=== PATIENT | female | born 1965 | race Caucasian/White ===

== ENCOUNTER 2017-02-17 05:16 | Inpatient (IN) | payer BC ==
--- NOTE | 2017-01-19 09:15 | History and Physical ---
History & Physical Date & Time of Service: January 19, 2017 at 09:11 Chief Complaint: Left Knee Osteoarthritis Primary Care Physician: left knee pain History of Present Illness Source: patient Ms Sanders is a 51 year old female who is here for a follow up of left knee pain. She presents with pain, decreased rom and stiffness on the left side. She states that the symptoms have been chronic non-traumatic. Patient is here today for follow up of her left knee, 4 month f/u after Synvisc One injection. She is requesting a cortisone injection at today's office visit and to discuss surgical options for her left knee. The symptoms occur constantly with intermittent worsening. The problem is worse. Currently the patient states that the symptoms are moderate-severe. The pain is described as aching, discomforting and throbbing. The symptoms occur continuously. The symptoms are aggravated by ascending stairs, daily activities, descending stairs, first steps while awake, kneeling, repetitive activities, sleeping in any position, squatting, walking and work activities. Deannie states that the symptoms are relieved by no specific activity. In addition to left knee pain the patient is also experiencing decreased mobility, difficulty bending, difficulty going to sleep, limping, nighttime awakening, pain and tenderness. Pertinent negatives include chills and fever. The patient has had a previous x-ray. Updated x-rays obtained today in our office. Prior NSAIDs include Aleve. Prior pain medications include Tylenol Arthritis. She has been treated with a corticosteroid injection on the left side. Patient has been treated w/ visco supplementation, previous Synvisc One, pt reports that she had an adverse reaction w/ her last injection, she stated that she had increased pain, decreased ROM and swelling. Past Medical/Surgical History Migraines Social History denies history of smoking or tobacco use. Review of Systems Constitutional: No chills, No fatigue, No fever, No problem reported, No sweats , No weakness, No weight loss Eyes: No diplopia, No discharge, No eye pain, No problem reported, No redness, No worsening of vision ENT: No dental problems, No hearing loss, No nasal symptoms, No problem reported, No sore throat, No tinnitus, No trouble swallowing, No unusual epistaxis Respiratory: No cough, No dyspnea at rest, No dyspnea on exertion, No hemoptysis, No problem reported, No shortness of breath, No sputum, No wheezing Cardiovascular: No PND, No chest pain, No claudication, No edema, No orthopnea , No palpitations, No problem reported Abdomen: No GI bleeding, No constipation, No diarrhea, No nausea, No pain, No problem reported, No vomiting Physical Exam General Appearance: WD/WN, no apparent distress Head: normocephalic, atraumatic Eyes: normal inspection, PERRL, EOMI ENT: normal ENT inspection Neck: supple, no adenopathy Respiratory/Chest: chest non-tender, lungs clear, normal breath sounds Cardiovascular: regular rate, rhythm, no edema Abdomen/GI: normal bowel sounds, non tender, soft Knee ROM L * Active ROM - Flexion: 125 degrees, Extension: 5 degrees, Factors: normal, Description: active pain free range of motion. Passive ROM - Factors: normal, Description: passive pain free range of motion. Knee ROM R * Active ROM - Factors: normal, Description: active pain free range of motion. Passive ROM - Factors: normal, Description: passive pain free range of motion. Knee * Gait: Antalgic. Alignment - Left: neutral. Ecchymosis - Left: negative. Effusion - Left: mild. Swelling - Left: mild. Flexibility - Left: normal. Maximum tenderness - Left: Medial Joint Line. Patella exam - Crepitation - Left : negative. Patella position - Left: neutral. Tilt - Left: equal. [facility]'s - medial - Left: Positive. Knee Comments The patient has no calf tenderness. Knee Normal Inspection - Atrophy - Left: Absent. Skin - Left: Normal. Patella exam - Apprehension - Left: Negative. Q-angle - Left: Normal. Kim's - Left: Negative. Augustine's - lateral - Left: Negative. Posterior drawer - Left: Negative. Anterior drawer - Left: Negative. Valgus stress - Left: Negative. Varus stress - Left: Negative. Extensor lag - Left: Normal. Diagnostics Diagnostic Radiology Xrays reviewed of the left knee showing findings consistent with degenerative joint disease including joint space narrowing, subchondral sclerosis and peripheral osteophyte formation. no acute bony pathology, overall varus alignment. Impression: degenerative joint disease of the left knee with no acute bony pathology noted. Impression Assessment and Plan Left Knee DJD -Further care discussed with patient and at this point in time has failed conservative measures and would like to proceed with a left total knee replacement. Plan on discharge will be home with outpatient physical therapy. DVT prophalaxis with TEDs, SCDs and will also place on aspirin 81 mg p.o. b.i.d. for a month postop. Patient will have follow up appointment in our office two weeks post op for staple/suture removal and re-evaluation. Patient otherwise has no other questions or concerns.
[2017-01-19 11:56] VITALS: BMI 26.0
--- NOTE | 2017-01-19 12:32 | PAT Medication Instructions ---
Service Date January 19, 2017. Current Home Medication List Hydrocodon/Acetaminophen 5MG/300MG (Vicodin (5MG/300MG)), 1 TAB PO HS PRN for Pain Lifitegrast (Xiidra), 1 DOSE OPB UD Topiramate (Topamax), 100 MG PO BID Trazodone Hcl (Trazodone), 100 MG PO HS Medication Instructions For Your Scheduled Surgery - Take the following medications the morning of surgery with a sip of water: Topiramate (Topamax), 100 MG PO BID Hydrocodon/Acetaminophen 5MG/300MG (Vicodin (5MG/300MG)), 1 TAB PO HS PRN for Pain (okay to take up to 4 hours prior to surgery if needed) Lifitegrast (Xiidra), 1 DOSE OPB UD - Take the following medications as scheduled the night before surgery: Trazodone Hcl (Trazodone), 100 MG PO HS Topiramate (Topamax), 100 MG PO BID Hydrocodon/Acetaminophen 5MG/300MG (Vicodin (5MG/300MG)), 1 TAB PO HS PRN for Pain (if needed) Lifitegrast (Xiidra), 1 DOSE OPB UD If you have any questions please call us at [phone] (Tammy Lee PA-C) or [phone] or [phone]
--- NOTE | 2017-01-19 13:35 | DIAGNOSTIC IMAGING REPORT ---
CHEST PREADMISSION(PA/LAT) CLINICAL HISTORY: Preoperative chest COMPARISON STUDY: No previous studies for comparison. FINDINGS: The cardiac and mediastinal contours are normal. There is no evidence of focal pulmonary consolidation. There is no evidence of failure. No pleural effusions are visualized.[ IMPRESSION: No active disease in the chest. Electronically signed by: Aydin Story M.D. 01/19/2017 1:34 PM Dictated Date/Time: 01/19/2017 1:32 PM
[2017-01-19 14:01] LABS: BASO % 0.3 %; BASO ABS # 0.02 K/uL (0-0.2); COMPLETE YES; EOS % 3.6 %; HEMATOCRIT 43.6 % (37-47); IG% 0.2 %; LYMPH % 32.3 %; LYMPH ABS # 1.96 K/uL (1.2-3.4); MEAN CELL VOLUME 92.4 fL (80-100); MEAN CORPUSCULAR HEMOGLOBIN 30.1 pg (25-34); MEAN CORPUSCULAR HGB CONC 32.6 g/dl (32-36); MEAN PLATELET VOLUME 9.7 fL (7.4-10.4); MONO % 8.6 %; PLATELET COUNT 240 K/uL (130-400); RED BLOOD COUNT 4.72 M/uL (4.2-5.4); WHITE BLOOD COUNT 6.06 K/uL (4.8-10.8)
[2017-01-19 14:05] LABS: CALCIUM 8.8 mg/dl (8.5-10.1); CREATININE 0.86 mg/dl (0.60-1.20); POTASSIUM 4.3 mmol/L (3.5-5.1)
[2017-01-19 14:07] LABS: URINE APPEARANCE TURBID (CLEAR); URINE BILIRUBIN NEG (NEG); URINE COLOR YELLOW; URINE EPITHELIAL CELL AUTO 0-5 /lpf (0-5); URINE NITRITE NEG (NEG); URINE SPECIFIC GRAVITY 1.017 (1.000-1.030); UROBILINOGEN NEG (NEG)
[2017-01-19 14:09] LABS: MANUAL MICROSCOPIC REQUIRED? NO; REVIEW REQ? NO
[2017-01-19 14:11] LABS: PARTIAL THROMBOPLASTIN RATIO 1.1; PROTHROMBIN TIME (PATIENT) 10.4 SECONDS (9.0-12.0)
[2017-01-19 14:30] LABS: ESTIMATED AVERAGE GLUCOSE 120 mg/dl; HA1C FLAG Normal (Normal)
[2017-02-17] VITALS (7 sets, daily range): BP systolic 96–116; BP diastolic 60–67; PULSE 53–69; TEMP 36.3–36.9; O2SAT 94–100; Ht 170.2 cm; Wt 77.8 kg
[~2017-02-17] VITALS: Ht 170.2 cm; Wt 77.8 kg
[~2017-02-17 05:16] MED LIST: HYDR-3419 PO; LIFI5DRO OPB; TOPI100T20 PO; TRAZ100T29 PO
[2017-02-17] MEDS ORDERED: MULT-506 PO (05:37)
[2017-02-17] MEDS ORDERED: VITACAP26 PO (05:37)
[2017-02-17] MEDS ORDERED: CALC500C70 PO (05:37)
[2017-02-17] MEDS ORDERED: GABAPENTIN 300 MG CAP PO SCH (06:00)
[2017-02-17] MEDS ORDERED: FAMOTIDINE 20 MG TAB PO SCH (06:00)
[2017-02-17] MEDS ORDERED: ACETAMINOPHEN 500 MG TAB PO SCH (06:00)
[2017-02-17] MEDS ORDERED: ROPIVACAINE 5MG/ML 30 ML 150 MG, BUPIVACAINE/EPINEPHR 0.5% MPF 30 ML, KETOROLAC TROMETH... INFIL SCH ×7 (06:00)
[2017-02-17] MEDS ORDERED: METOCLOPRAMIDE HCL 10 MG TAB PO SCH (06:00)
[2017-02-17] MEDS ORDERED: CEFAZOLIN 2000 MG/60 ML D5W 60 ML IV SCH (06:00)
[2017-02-17] MEDS ORDERED: LACTATED RINGER'S 1000ML IV SCH ×2 (06:00→07:00)
[2017-02-17] MEDS ORDERED: DEXAMETHASONE 4 MG TAB PO SCH (06:00)
[2017-02-17] MEDS ORDERED: LACTATED RINGER'S 500 ML IV SCH (06:00)
[2017-02-17] MEDS ORDERED: CeleBREX 200 MG CAP PO SCH (06:00)
[2017-02-17] MEDS ORDERED: PROPOFOL IV EMULSION 10 MG/ML 20 ML VIAL IV ONE (06:25)
[2017-02-17] MEDS ORDERED: LIDOCAINE HCL 2% 2 ML VIAL (20MG/ML) ONE (06:25)
[2017-02-17] MEDS ORDERED: MIDAZOLAM HCL 1 MG/ML 2ML VIAL ONE (06:25)
[2017-02-17] MEDS ORDERED: FENTANYL CITRATE INJ 50 MCG/1 ML 2 ML VIAL ONE (06:25)
[2017-02-17] MEDS ORDERED: BUPIVACAINE 0.5 % 5 MG/1 ML PF 10ML VIAL ONE (06:27)
[2017-02-17] MEDS ORDERED: BUPIVACAINE 0.25% 30 ML VIAL ONE (06:27)
[2017-02-17] MEDS: TRANEXAMIC ACID INJ 1,000 MG in SODIUM CHLORIDE 0.9% 100ML 100 ML IV SCH ×2 (06:30→07:08)
[2017-02-17] MEDS ORDERED: POVIDONE-IODINE OP SOLN 30 ML BTL ONE (06:38)
[2017-02-17] MEDS ORDERED: BACITRACIN 50000 UNIT VIAL ONE (06:38)
[2017-02-17] MEDS ORDERED: ORTHO JOINT ANESTHETIC ONE (06:38)
--- NOTE | 2017-02-17 06:54 | History & Physical Bridge Note ---
H&P Re-Evaluation Bridge Note: I have examined the patient, reviewed the History & Physical and in the interval since the performance of the History & Physical I have noted the following changes of clinical significance: No changes noted
[2017-02-17] MEDS ORDERED: ONDANSETRON INJ 2 MG/ML 2 ML VIAL IV PRN ×2 (07:45→08:15)
[2017-02-17] MEDS ORDERED: EpHEDrine SULFATE INJ 50 MG/ML AMP IV PRN (07:45)
[2017-02-17] MEDS ORDERED: FENTANYL CITRATE INJ 50 MCG/1 ML 2 ML VIAL IV PRN (07:45)
[2017-02-17] MEDS ORDERED: ATROPINE SULFATE 0.1 MG/ML 5ML SYR IV PRN (07:45)
[2017-02-17] MEDS ORDERED: MAGNESIUM HYDROXIDE SUSP 30 ML UDC PO PRN ×2 (08:15→09:00)
[2017-02-17] MEDS ORDERED: BISACODYL 10 MG SUPP PR PRN (08:15)
[2017-02-17] MEDS ORDERED: ZOLPIDEM TARTRATE 5 MG TAB PO PRN (08:15)
[2017-02-17] MEDS ORDERED: TRAMADOL HCL 50 MG TAB PO PRN (08:15)
[2017-02-17] MEDS ORDERED: ALUMINUM/MAGNESIUM/SIMETH (MAALOX MAX) 30 ML UDC PO PRN (08:15)
[2017-02-17] MEDS ORDERED: METOCLOPRAMIDE HCL INJ 5 MG/ML 2 ML VIAL IV PRN (08:15)
[2017-02-17] MEDS ORDERED: SOD PHOSPHATE/SOD BIPHOSPHATE ENEMA 132 ML BTL PR PRN (08:15)
[2017-02-17] MEDS ORDERED: DiphenhydrAMINE HCL 50 MG/ML VIAL IV PRN (08:15)
--- NOTE | 2017-02-17 08:15 | [facility] Post Operative Brief Note ---
Immediate Operative Summary Operative Date Feb 17, 2017. Pre-Operative Diagnosis Left Knee Degenerative Joint Disease Post-Operative Diagnosis Left Knee Degenerative Joint Disease Procedure(s) Performed Left Total Knee Arthroplasty Surgeon Dr. Sapp Dietary Services Director Surgeon(s) ESTRELLA Walker Estimated Blood Loss 5 ml Findings severe djd lt knee Specimens A. Left Knee Bone and Tissue Complication(s) None Disposition Recovery Room / PACU
--- NOTE | 2017-02-17 08:51 | OPERATIVE REPORT ---
DATE OF OPERATION: 02/17/2017 PREOPERATIVE DIAGNOSIS: Severe end-stage tricompartmental degenerative joint disease left knee. POSTOPERATIVE DIAGNOSIS: Severe end-stage tricompartmental degenerative joint disease left knee. PROCEDURE: Left total knee arthroplasty utilizing Coronado [employer] Nephew Journey II patient matched with block total knee arthroplasty size 5 femur, 5 tibia, 10 poly, 32 oval patella. SURGEON: Dr. Sapp. MACHINE JOINER CEMENTER: Yemi Ruff PA-C who was necessary for prepping, draping, retraction, wound closure of deep fascia, subcutaneous and skin. COMPLICATIONS: None. ESTIMATED BLOOD LOSS: 5 mL. HISTORY OF PRESENT ILLNESS: The patient presents as a 51-year-old white female being seen and evaluated with complaints of ongoing pain attributed to her left knee. She has been unresponsive to conservative therapy including injections, physical therapy, anti-inflammatories, viscosupplementation, relative rest, activity modification. After thorough discussion regarding risks and complications the patient elects to proceed forward with left total knee arthroplasty. OPERATION AND FINDINGS: PROCEDURE: The patient was properly prepped and draped in supine position for total knee arthroplasty after identifying the appropriate surgical site. An anterior midline incision was made through the subcutaneous tissues down to the region of the extensor mechanism. A medial parapatellar incision was subsequently made. Meticulous hemostasis was obtained and performed at all times. The patella having been subluxed lateralward, medial and lateral meniscal remnants were excised. The patellar cut was then initially made and was sized to the appropriate size. After subluxing the tibia forward the appropriate meniscal fragments having been removed the distal femur was then cut first utilizing a Coronado & Nephew block. The distal femoral cuts and chamfer cuts were all made under direct visualization and the proximal tibial osteotomy cut was also made utilizing Coronado & Nephew blocks and checked with an extramedullary guide. The appropriate trial components on the femur and tibia were placed. Appropriate trial spacers were used to check flexion and extension gaps. With flexion and extension gaps being equal, the components were then subsequently after thorough irrigation and debridement lavage components were then subsequently cemented in the following order: femur, tibia and patella. Exparel was used for intraoperative anesthesia, the medial parapatellar incision was closed utilizing #1 Vicryl, subQ was closed with 2-0 Vicryl, skin was closed with skin clips. A sterile compression dressing was placed. The patient was taken to recovery room in stable condition. Due to the complex nature of the procedure, the entire surgery was performed with the operational assistance of Yemi Ruff PA-C. The engineer third assistant, under direct supervision, was involved in the actual performance of all aspects of the surgical procedure including hemostasis, tissue retraction and incision, instrument management, patient positioning, and wound closure. I attest to the content of the Intraoperative Record and any orders documented therein. Any exception s are noted below.
[2017-02-17] MEDS: TOPIRAMATE 100 MG TAB PO SCH ×2 (09:00→21:21)
[2017-02-17] MEDS ORDERED: DOCUSATE SODIUM 100 MG CAP PO SCH (09:00)
[2017-02-17] MEDS ORDERED: LIFITEGRAST OPB SCH (09:00)
[2017-02-17] MEDS ORDERED: HYDROmorphone INJ 1 MG/ML SYR IV PRN (09:00)
--- NOTE | 2017-02-17 09:18 | DIAGNOSTIC IMAGING REPORT ---
LEFT KNEE 1 OR 2 VIEWS ROUTINE CLINICAL HISTORY: Postoperative evaluation. COMPARISON: None FINDINGS: Alignment of the total left knee arthroplasty is anatomic. There is no fracture or unexpected radiopaque foreign body. Drains and skin ignacio are present. IMPRESSION: Expected findings following total left knee arthroplasty. Electronically signed by: Ayden Hassan M.D. 02/17/2017 9:17 AM Dictated Date/Time: 02/17/2017 9:07 AM
--- NOTE | 2017-02-17 09:57 | Anesthesiology Progress Note ---
Anesthesia Post Op Note Date & Time Feb 17, 2017 at 09:57 Vital Signs Pain Intensity: 0 Vital Signs Past 12 Hours Date Time Temp Pulse Resp B/P (MAP) Pulse Ox O2 Delivery O2 Flow Rate FiO2 02/17/17 09:35 62 13 92/50 98 Nasal Cannula 2 02/17/17 09:20 36.1 56 14 111/58 100 Nasal Cannula 2 02/17/17 09:10 47 14 106/58 100 Nasal Cannula 2 02/17/17 09:00 48 13 97/51 100 Nasal Cannula 2 02/17/17 08:50 55 13 102/55 100 Nasal Cannula 2 02/17/17 08:44 36.5 66 18 98/58 100 Nasal Cannula 2 02/17/17 05:38 36.8 55 16 100/63 95 Room Air Notes Mental Status: alert / awake / arousable, participated in evaluation Pt Amnestic to Procedure: Yes Nausea / Vomiting: adequately controlled Pain: adequately controlled Airway Patency, RR, SpO2: stable & adequate BP & HR: stable & adequate Hydration State: stable & adequate Neuraxial Anesthesia: was administered, sensory block is resolving Anesthetic Complications: no major complications apparent
[2017-02-17] MEDS: SODIUM CHLORIDE 0.9% 1000ML 1,000 ML IV SCH ×2 (11:16→18:38)
[2017-02-17] MEDS: DOCUSATE SODIUM 100 MG CAP PO SCH ×2 (11:41→21:21)
[2017-02-17] MEDS: CALCIUM 600MG + VIT D 400 IU TAB PO SCH ×2 (11:41→21:21)
[2017-02-17] MEDS: MULTIVITAMIN TAB PO SCH (11:41)
[2017-02-17] MEDS: PANTOprazole SOD 40 MG TAB PO SCH (11:42)
[2017-02-17] MEDS: FERROUS GLUCONATE 324 MG TAB PO SCH ×2 (11:43→18:20)
[2017-02-17] MEDS: KETOROLAC TROMETHAMINE 30 MG/ML VIAL IV. SCH ×2 (14:16→20:07)
[2017-02-17] MEDS ORDERED: TRANEXAMIC ACID INJ 1,000 MG in SODIUM CHLORIDE 0.9% 100ML 100 ML IV SCH (15:00)
[2017-02-17] MEDS: CEFAZOLIN IV 1,000 MG in DEXTROSE 5% 50ML 50 ML IV SCH ×2 (15:33→23:18)
[2017-02-17] MEDS: OXYCODONE HCL 10 MG TABCR (OXYCONTIN) PO SCH (21:20)
[2017-02-17] MEDS: ASPIRIN 81 MG ECTAB PO SCH (21:21)
[2017-02-17] MEDS: SENNA 8.6 MG TAB PO SCH (21:21)
[2017-02-17] MEDS: TRAZODONE HCL 100 MG TAB PO SCH (21:21)
[2017-02-18] MEDS: KETOROLAC TROMETHAMINE 30 MG/ML VIAL IV. SCH ×2 (01:53→08:14)
[2017-02-18 03:35] VITALS: BP 102/60; PULSE 53; TEMP 36.8; O2SAT 95
[2017-02-18] MEDS: SODIUM CHLORIDE 0.9% 1000ML 1,000 ML IV SCH (03:47)
[2017-02-18 05:47] LABS: MEAN CELL VOLUME 90.7 fL (80-100); MEAN CORPUSCULAR HEMOGLOBIN 29.9 pg (25-34); MEAN PLATELET VOLUME 9.3 fL (7.4-10.4); PLATELET COUNT 181 K/uL (130-400); RED BLOOD COUNT 3.64 M/uL (4.2-5.4)
[2017-02-18 06:20] LABS: BUN/CREATININE RATIO 15.8 (10-20); CALCIUM 8.1 mg/dl (8.5-10.1); CREATININE 0.64 mg/dl (0.60-1.20); POTASSIUM 3.5 mmol/L (3.5-5.1)
[2017-02-18 07:16] VITALS: BP 95/58; PULSE 53; TEMP 36.9; O2SAT 98
--- NOTE | 2017-02-18 08:11 | Anesthesiology Progress Note ---
Anesthesia Post Op Note Date & Time Feb 18, 2017 at 08:11 Vital Signs Pain Intensity: 0.0 Vital Signs Past 12 Hours Date Time Temp Pulse Resp B/P (MAP) Pulse Ox O2 Delivery O2 Flow Rate FiO2 02/18/17 07:16 36.9 53 14 95/58 (70) 98 Room Air 02/18/17 03:35 36.8 53 16 102/60 (74) 95 Room Air 02/17/17 23:05 36.8 53 17 105/60 (75) 94 Room Air 02/17/17 20:17 36.3 69 18 116/60 (78) 99 Room Air Notes Mental Status: alert / awake / arousable, participated in evaluation Pt Amnestic to Procedure: Yes Nausea / Vomiting: adequately controlled Pain: adequately controlled Airway Patency, RR, SpO2: stable & adequate BP & HR: stable & adequate Hydration State: stable & adequate Neuraxial Anesthesia: was administered, sensory block resolved Anesthetic Complications: no major complications apparent
[2017-02-18] MEDS: FERROUS GLUCONATE 324 MG TAB PO SCH ×3 (08:14→17:49)
[2017-02-18] MEDS: TOPIRAMATE 100 MG TAB PO SCH ×2 (08:15→21:31)
[2017-02-18] MEDS: PANTOprazole SOD 40 MG TAB PO SCH (08:15)
[2017-02-18] MEDS: MULTIVITAMIN TAB PO SCH (08:15)
[2017-02-18] MEDS: ASPIRIN 81 MG ECTAB PO SCH ×2 (08:16→21:31)
[2017-02-18] MEDS: CALCIUM 600MG + VIT D 400 IU TAB PO SCH ×2 (08:16→21:29)
[2017-02-18] MEDS: DOCUSATE SODIUM 100 MG CAP PO SCH ×2 (08:16→21:30)
--- NOTE | 2017-02-18 08:35 | Orthopedic Progress Note ---
Orthopedic Progress Note Date of Service Feb 18, 2017. Subjective Post OP Day: 1 Reports: feeling well, Denies: chest pain, SOB, nausea / vomiting, light headedness, calf pain Additional Notes: Pt doing well this AM. Pain controlled currently. States she has some numbness in the foot but otherwise is doing well. Objective calves soft nontender, dressing C/D/I, A&O x3, toes mobile, hemovac drainage ( 125ml latest shift) Pt has good DF/PF of the left foot. Mild numbness in the dorsum of the foot. Date Time Temp Pulse Resp B/P (MAP) Pulse Ox O2 Delivery O2 Flow Rate FiO2 02/18/17 07:16 36.9 53 14 95/58 (70) 98 Room Air 02/18/17 03:35 36.8 53 16 102/60 (74) 95 Room Air 02/17/17 23:05 36.8 53 17 105/60 (75) 94 Room Air 02/17/17 20:17 36.3 69 18 116/60 (78) 99 Room Air 02/17/17 15:42 36.9 56 18 103/61 (75) 97 Room Air 02/17/17 13:04 36.8 58 17 96/60 (72) 100 Nasal Cannula 2.0 02/17/17 12:13 36.7 62 19 99/62 (74) 99 Nasal Cannula 2.0 02/17/17 10:05 Room Air 02/17/17 10:05 36.6 54 16 110/67 (81) 100 Nasal Cannula 2.0 02/17/17 10:05 100 Nasal Cannula 2.0 02/17/17 10:05 100 Nasal Cannula 2.0 02/17/17 09:35 62 13 92/50 98 Nasal Cannula 2 02/17/17 09:20 36.1 56 14 111/58 100 Nasal Cannula 2 02/17/17 09:10 47 14 106/58 100 Nasal Cannula 2 02/17/17 09:00 48 13 97/51 100 Nasal Cannula 2 02/17/17 08:50 55 13 102/55 100 Nasal Cannula 2 02/17/17 08:44 36.5 66 18 98/58 100 Nasal Cannula 2 Laboratory Results 24 Hours: Test 02/18/17 05:26 Hematocrit 33.0 % Hemoglobin 10.9 g/dL Assessment & Plan Assessment: POD 1 s/p Left TKA Plan: Numbness likely due to intraop injection. Will follow. PT/OT Planning [facility] Planning Pain Management: Toradol, Oxycontin, Ultram, Dilaudid, PO Tylenol, Oxy IR DVT Prophylaxis: TEDs, SCDs, ASA Discharge Planning Discharge Planning: home with home health Pain Management: Oxycontin, PO Tylenol, Oxy IR DVT Prophylaxis: TEDs, ASA Therapy: Physical Therapy
--- NOTE | 2017-02-18 08:42 | Discharge Instructions ---
Discharge Instructions Date of Service Feb 18, 2017. Admission Reason for Admission: Left Knee Osteoarthritis Discharge Discharge Diagnosis / Problem: Left Knee Djd Discharge Goals Goal(s): Decrease discomfort, Improve function Activity Recommendations Activity Limitations: per Instructions/Follow-up section Weightbearing Status: Left weightbearing (as tolerated) . Instructions / Follow-Up Instructions / Follow-Up ACTIVITY RECOMMENDATIONS: SELF CARE INSTRUCTIONS AFTER TOTAL KNEE REPLACEMENT A. You may need to continue a physical therapy program after discharge from the hospital. There are several options available to you. Your doctor will assist you in selecting the best one for you. 1. An out-patient facility 2 to 3 times a week for therapy or home therapy. 2. Continue working on all exercises taught to you in the hospital. Your goals should be to increase bending of your knee to 90 degrees and beyond and to fully straighten your knee. B. You may progress at your own pace from walking with a walker or crutches to a cane; then to no assistive devices. C. Make walking a part of your daily routine. Be up as much as comfortable with rest periods throughout the day. Rest with leg elevation is very important. Use the ice wrap frequently for the first 3-4 weeks. D. There are no restrictions on activities. You may ride in a car, shop, participate in inside account executive and all social activities. E. Wear the long elastic stockings (MADDIE hose) 20 hours a day for 2 weeks after surgery. They can be removed several times a day for laundering and for a bath. F. You may shower, no tub baths until cleared by your doctor. SPECIAL CARE INSTRUCTIONS: VERY IMPORTANT TO READ AND REVIEW A. There are a few signs you need to watch for after you are home. Call [facility] if you notice any of the followin. Increased severe knee pain. Some pain is expected especially when you exercise. 2. Increased swelling in your leg or knee; pain or swelling of the calf muscle in either lower leg. 3. Any fluid drainage from the incision. 4. Shortness of breath or chest pain. B. Please call [facility] at if you have any concerns or questions about your operation or recovery. The doctor or his nurse will return your call promptly. C. You must take antibiotics before dental work, bladder, bowel or other surgery. Your doctor will provide you with a permanent care to carry describing this precaution. IMPORTANT: * REMEMBER TO TAKE ASPIRIN, 81 MG, TWICE DAILY FOR 4 WEEKS UNLESS OTHERWISE DIRECTED. THIS IS YOUR BLOOD THINNER. * HIGH RISK PATIENTS MAY BE PRESCRIBED A STRONGER BLOOD THINNER. THIS WILL BE PROVIDED AT DISCHARGE. * CALL IF INCREASED PAIN, REDNESS, DRAINAGE OR FEVER GREATER THAT 101. * WEAR MADDIE HOSE 20 HOURS PER DAY FOR 2 WEEKS. * Silverlon- This is a large adhesive bandage that contains silver ions. This helps your incision heal by fighting off bacteria and protecting it from the outside environment. You are permitted to shower with this dressing. This will remain on your incision for 7 days and then should be removed. Some visible blood or drainage through the dressing window is normal. If there is significant drainage or leaking noted before the 7 days notify your doctor's office immediately. Once removed, keep incision clean and dry. If there is any drainage or redness noted, please call your surgeon. . FOLLOW UP VISIT: If appointment is not already scheduled: Please call [facility] to make a follow-up appointment for 2 weeks after your surgery at . Current Hospital Diet Patient's current hospital diet: Regular Diet Discharge Diet Recommended Diet: Regular Diet Procedures Procedures Performed: Left Total Knee Arthroplasty Pending Studies Studies pending at discharge: no Laboratory Results Hemoglobin A1c Test 01/19/17 12:53 Range/Units Estimated Average Glucose 120 mg/dl Hemoglobin A1c 5.8 H 4.5-5.6 % Medical Emergencies . Who to Call and When: Medical Emergencies: If at any time you feel your situation is an emergency, please call 911 immediately. . Non-Emergent Contact Non-Emergency issues call your: Surgeon Call Non-Emergent contact if: temperature is above 101.5, your pain is not controlled, your pain is worsening, wound has increased drainage, wound has increased redness . "Provider Documentation" section prepared by Yemi Ruff. . VTE Core Measure Inpt VTE Proph given/why not?: Other Anticoagulation, T.E.D. Stockings, SCD's [place] Drug Monitoring Program Search Results: patient reviewed within database, see additional documentation Drug Monitoring Findings: Pt receiving 30 tablets of [place] as one month supply (1 tab daily?). Last RX filled 02/05/17. Pt will need short term increase in the amount of narcotics taken due to TKA surgery. Pt will need to f/u with current prescriber for further pain meds once Dr Sapp has stopped prescribing pain meds for her recent surgery.
[2017-02-18] MEDS: OXYCODONE HCL 10 MG TABCR (OXYCONTIN) PO SCH ×2 (08:53→21:31)
[2017-02-18 10:49] VITALS: BP 109/67; PULSE 55; TEMP 36.8; O2SAT 100
[2017-02-18] MEDS: OXYCODONE HCL IR 5 MG TAB (IMMEDIATE RELEASE) PO PRN ×2 (15:34→23:37)
[2017-02-18 15:52] VITALS: BP 102/66; PULSE 68; TEMP 36.9; O2SAT 95
[2017-02-18] MEDS: TRAZODONE HCL 100 MG TAB PO SCH (21:30)
[2017-02-18] MEDS: SENNA 8.6 MG TAB PO SCH (21:31)
[2017-02-18 23:05] VITALS: BP 111/65; PULSE 75; TEMP 37.5; O2SAT 95
[2017-02-19 06:27] VITALS: BP 104/63; PULSE 77; TEMP 37.1; O2SAT 96
--- NOTE | 2017-02-19 07:20 | Orthopedic Progress Note ---
Orthopedic Progress Note Date of Service Feb 19, 2017. Subjective Post OP Day: 2 Reports: feeling well Objective N/V intact, dressing C/D/I, toes mobile Date Time Temp Pulse Resp B/P (MAP) Pulse Ox O2 Delivery O2 Flow Rate FiO2 02/19/17 06:27 37.1 77 16 104/63 (77) 96 Room Air 02/18/17 23:30 Room Air 02/18/17 23:05 37.5 75 16 111/65 (80) 95 Room Air 02/18/17 15:52 36.9 68 18 102/66 (78) 95 Room Air 02/18/17 15:20 Room Air 02/18/17 10:49 36.8 55 18 109/67 (81) 100 Room Air 02/18/17 08:05 Room Air Assessment & Plan Assessment: POD 2 s/p Left TKA Plan: PT/OT Planning for services with [facility] Planning Pain Management: Toradol, Oxycontin, Ultram, Dilaudid, PO Tylenol, Oxy IR DVT Prophylaxis: TEDs, SCDs, ASA Discharge Planning Discharge Planning: home with home health Pain Management: Oxycontin, PO Tylenol, Oxy IR DVT Prophylaxis: TEDs, ASA Therapy: Physical Therapy
[2017-02-19] MEDS ORDERED: ASPEC81 PO (07:22)
[2017-02-19] MEDS ORDERED: RXC5 PO (07:22)
[2017-02-19] MEDS ORDERED: OXYSR10 PO (07:22)
[2017-02-19] MEDS: OXYCODONE HCL 10 MG TABCR (OXYCONTIN) PO SCH (08:58)
[2017-02-19] MEDS: PANTOprazole SOD 40 MG TAB PO SCH (08:59)
[2017-02-19] MEDS: MULTIVITAMIN TAB PO SCH (08:59)
[2017-02-19] MEDS: DOCUSATE SODIUM 100 MG CAP PO SCH (08:59)
[2017-02-19] MEDS: ASPIRIN 81 MG ECTAB PO SCH (08:59)
[2017-02-19] MEDS: TOPIRAMATE 100 MG TAB PO SCH (08:59)
[2017-02-19] MEDS: FERROUS GLUCONATE 324 MG TAB PO SCH ×2 (09:00→12:30)
[2017-02-19] MEDS: CALCIUM 600MG + VIT D 400 IU TAB PO SCH (09:00)
[2017-02-19 12:05] VITALS: BP 104/63; PULSE 77; TEMP 37.1; O2SAT 96
--- NOTE | 2017-02-23 14:31 | DISCHARGE SUMMARY ---
DISCHARGE DIAGNOSIS: Degenerative joint disease left knee. SECONDARY DIAGNOSES: Migraine headaches. CONSULTS: None. COMPLICATIONS: None. PROCEDURES: Left total knee arthroplasty performed by Dr. Sapp on 02/17/2017. BRIEF HISTORY: As dictated in the history and physical. HOSPITAL SUMMARY: The patient was admitted on the above-noted date and had the above-noted surgery performed which she tolerated well. On the first postoperative day the patient was feeling well. Denied chest pain, shortness of breath, nausea, vomiting, no lightheadedness or calf pain. Pain was controlled and stated that she had some numbness in the foot on the operative foot but was otherwise doing well. Calves were soft and nontender. Dressings clean, dry and intact. Toes were mobile. She had good dorsiflexion, plantar flexion of the left foot with mild numbness noted in the dorsum of her foot. Vital signs were stable. She was afebrile. Hemoglobin was 10.9. The numbness in her foot was likely secondary to intraoperative injection and plans were to follow. She was started on physical therapy protocol and continued on DVT prophylaxis and pain management. By her second postoperative day, she was feeling well. Neurovascularly intact. Dressings clean, dry and intact. Toes were mobile. Vital signs were stable. She was afebrile. She was progressing with her physical therapy and remaining stable and it was felt she could be discharged to home on 02/19/2017 with home health services. For further review, please see chart. LAB AND X-RAY DATA: As per chart. DISCHARGE INSTRUCTIONS: The patient was discharged to home in satisfactory condition on 02/19/2017. DIET: Regular. ACTIVITY: Weightbearing as tolerated left lower extremity. Follow TK instruction sheets and special care instructions as noted. Follow up with Dr. Sapp in 2 weeks. The patient to call for appointment if one has not been made for you. DISCHARGE MEDICATIONS: Aspirin 81 mg p.o. b.i.d. for 28 days, OxyContin 10 mg p.o. q. 12 hours, oxycodone 5-10 mg p.o. q. 4 hours p.r.n., resume home meds including [place] 500 plus D 1 tab p.o. b.i.d. Ziidra 5% drops 1 dose OPB as directed, multivitamin 1 tab p.o. daily, Topamax 100 mg p.o. b.i.d., trazodone 100 mg p.o. at bedtime, vitamin C and E 1 cap p.o. daily. Stop taking Vicodin.
== END 2017-02-19 14:25 | disposition home health service (06) | DRG 470 ==
LOC: C.ACU 05:16 → C.3E 06:45 → ENRESERV 09:09
PROVIDERS: ADMIT Orthopaedic Surgery; ATTEND Orthopaedic Surgery
PROC: 0SRD0J9 Replacement of Left Knee Joint with Synthetic Substitute, Cemented, Open Approach (ICD-10-PCS; principal; 2017-02-17 07:00)
DX: M17.12 Unilateral primary osteoarthritis, left knee (principal); R20.0 Anesthesia of skin; Y84.8 Other medical procedures as the cause of abnormal reaction of the patient, or of later complication, without mention of misadventure at the time of the procedure; Y92.234 Operating room of hospital as the place of occurrence of the external cause; G43.909 Migraine, unspecified, not intractable, without status migrainosus; R56.9 Unspecified convulsions; Z87.891 Personal history of nicotine dependence; Z79.891 Long term (current) use of opiate analgesic; Z79.899 Other long term (current) drug therapy